=== PATIENT | male | born 1985 | race Hispanic/Latino ===

== ENCOUNTER 2017-11-26 21:46 | Emergency (ER) | payer BC ==
[~2017-11-26] VITALS: Ht 160 cm; Wt 86.6 kg
[~2017-11-26 21:46] MED LIST: DEXILANT30 MG PO; DEXILANT60 MG PO; KEFLEX500 MG PO; MULTIPLE VITAM1 EAC1 PO; TYLENOL WITH C1 EACH PO
[2017-11-26] MEDS ORDERED: PREDNISONE 20 MG TAB PO STA (22:28)
== END 2017-11-26 22:59 | disposition home or self-care (01) ==
LOC: FSED 21:46 → MERGE 21:46 → FSED 22:59
DX: R60.9 Edema, unspecified (principal); K11.21 Acute sialoadenitis; K21.9 Gastro-esophageal reflux disease without esophagitis
CPT/HCPCS: 99284

== ENCOUNTER → 2017-12-04 | Outpatient (CLI) | payer BC ==
[~2017-12-04] MED LIST changes: +IOPAMIDOL 370 MG/ML 200 ML INFUS..BTL INJ ONE; +SODIUM CHLORIDE 0.9% 50ML 50 ML ONE
--- NOTE | 2017-12-04 08:51 | Diagnostic Imaging Report ---
History: Swelling in the neck for 4 days Comparison studies: None Technique: Axial, coronal and sagittal images from the skull base to the thoracic inlet. Coronal and sagittal images reconstructed from the axial data. Intravenous contrast: 100 cc of Omnipaque 300. Findings: Soft tissues: Prominent bilateral palatine tonsils without fluid collection or abnormal enhancement. No other soft tissue abnormality Masses: None. Lymph nodes: No radiographically significant adenopathy. Vessels: Arteries and veins are patent. Glands ( parotid and submandibular): Normal in size and symmetric. No masses. Subcentimeter calcified thyroid nodule on the left inferior pole. Heterogeneous enhancement of the normal sized thyroid gland, nonspecific without discrete lesion. Orbits: No abnormalities. Paranasal sinuses: Clear. Temporal bones: No abnormalities. Skull base and facial bones: Intact. Cervical spine: Patent canal and foramina IMPRESSION: 1. Mildly heterogeneous enhancement of the thyroid gland, recommend correlation with thyroid function tests. 2. Prominent palatine tonsils without inflammatory changes, could related to lymphoid hypertrophy. No other neck abnormality Signed by: DR Jimi Sumner M.D. on 12/04/2017 8:48 AM
== END ==
LOC: CT 07:30
PROVIDERS: ATTEND Otolaryngology
DX: K11.5 Sialolithiasis (principal)
CPT/HCPCS: 70491; Q9967

== ENCOUNTER → 2018-11-20 | Day surgery (SDC) | payer BC ==
[~2018-11-20] MED LIST changes: +FENTANYL CITRATE/PF 100MCG/2 ML INJ ONE; -IOPAMIDOL 370 MG/ML 200 ML INFUS..BTL INJ ONE; +MIDAZOLAM HCL 2 MG/2 ML VIAL ONE; +RANITIDINE HCL300 MG PO; -SODIUM CHLORIDE 0.9% 50ML 50 ML ONE
--- OUTSIDE RECORDS SUMMARY | 2018-11-20 12:16 | XMS REPORT | Encounter Summary ---
Author Organization Unknown Address [address] [place] [address] Phone [phone] Care Team Providers Care Natural Resources Professor Name Role Phone Tomas Oglesby 3 [phone] Reason for Visit Flu Immunization; Medical Complaint; Immunization Instructions 1. Allergic pharyngitis rapid strep group A, throat Lidocaine Viscous 2 % mucosal solution 2. Posterior rhinorrhea fluticasone 50 mcg/actuation nasal spray,suspension 3. Influenza vaccine needed Flulaval Quad [id number] (PF) 60 mcg (15 mcg x 4)/0.5 mL IM syringe 4. Immunization Boostrix Tdap 2.5 Lf unit-8 mcg-5 Lf/0.5 mL intramuscular syringe 5. Tachycardia 6. Elevated blood-pressure reading without diagnosis of hypertension elevated blood pressure: care instructions 7. Body mass index 30+ - obesity body mass index: care instructions 8. Counseling Discussion Note Pt is in NAD; Verbalizes understanding of all instructions with no questions at this time. Plan of Care Patient Instructions Td Booster every 10 years after first Tdap vaccine. Refer to your VIS handout as discussed in clinic today regarding your care after administration. Follow up with your PCP as needed. In case of emergecy call 911 or go to nearest ER. Take fluticasone as needed for congestion. [place] one spray in each nostril twice a day. Take a warm, steamy shower, blow your nose thereafter, and spray in each nostril. Tilt your head up for about 10 seconds and breath through your mouth. Do not sniff or snort the medication in or else the medication will go to your throat and not be absorbed appropriately. Gargle and spit viscous lidocaine as needed for sore throat as directed. Do not share any utensils/cups, no kissing. Frequent handwashing recommended. Recommend monitor BP and HR at home and document, bring BP and HR log to PCP for review. Recommend follow a low sodium/fat/carb diet and exercise 30-45 mins/d 3-4 days a week. In case of an emergency call 911 or go to nearest ER. Reminders Provider Appointments None recorded. Lab Rapid Strep Group a, Throat 01/28/2018 [facility] Referral None recorded. Procedures None recorded. Surgeries None recorded. Imaging None recorded. Medications Name Start Date Dexilant 60 mg capsule, delayed release TAKE ONE (1) CAPSULE(S) BY MOUTH ONCE A DAY. fluticasone 50 mcg/actuation nasal spray,suspension [place] 2 sprays every day by intranasal route at bedtime for 14 days. Lidocaine Viscous 2 % mucosal solution Take 15 mL every 3 hours by oral route as needed. ranitidine 300 mg tablet TAKE ONE (1) TABLET(S) BY MOUTH DAILY. Medications Administered None recorded. Vitals Height Weight BMI Blood Pressure 5 ft 3 in 206 lbs 36.5 kg/m2 (1) 130/80 mm[Hg] (2) 120/90 mm[Hg] Lab Results Date Name Specimen Result Interpretation Description Value Range Status Address Rapid Strep Group a, Throat Result negative [facility]: [address] [place] [address] Swab Location Left and Right tonsillar pillars [facility]: [address] [place] [address] Allergies Code Code System Name Reaction Severity Status Onset NKDA Problems Name Status Onset Date Source Body Mass Index 30+ - Obesity Active 01/28/2018 Allergic Pharyngitis Active 01/28/2018 Posterior Rhinorrhea Active 01/28/2018 Gastroesophageal Reflux Disease Active 01/28/2018 Tachycardia Active 01/28/2018 Elevated Blood-pressure Reading without Diagnosis of Hypertension Active 01/28/2018 Influenza Vaccine Needed Active 01/28/2018 Immunization Active 01/28/2018 Counseling Active 01/28/2018 Procedures Date Name Performed by Appendectomy Information not available Vaccine List Vaccine Type influenza, injectable, quadrivalent, preservative free 01/29/20170.5 mL 01/28/20180.5 mL Tdap 01/28/20180.5 mL Social History Smoking Status Never Smoker Past Encounters 01/28/2018 Allergic Pharyngitis; Posterior Rhinorrhea; Influenza Vaccine Needed; Immunization; Tachycardia; Elevated Blood-pressure Reading without Diagnosis of Hypertension; Body Mass Index 30+ - Obesity; Counseling TARA Lopez-C: [address] [facility], [place] [address], Ph. History of Present Illness Wvbwf-Pfvukuhyaw-Mbnthao Reported By: Patient HPI: Quality: sore throat; post nasal drip. Duration: 2days. Severity: moderate. Onset/Timing: gradual. Context: no sick contacts, no foreign travel, non- smoker, allergies. Modifying factors: OTC medication. Associated Symptoms: no sputum production, no shortness of breath, no wheezing, no change in number of pillows needed to sleep at night, no sweats, no significant weight gain, no significant weight loss, no morning cough, no vomiting, no diarrhea, no rash, no nausea, no fever, no muscle aches, no headache, sore throat; post nasal drip Immunization Reported By: Patient HPI: Immunization Request ; 32 YOM pt with c/o sore throat and post nasal drip x 2 days. Immunization eligibility questions No vaccines in last month, No reaction to previous vaccines:, No Known Allergies Note:
Review of Systems Basic Reported By: Patient Constitutional: Constitutional: no fever Eyes: Eyes: no eye complaints Tzdo-Axal-Vnaop-Throat: Ears: no ear complaints. Nose: nose/sinus problems. Mouth/Throat: no bleeding gums, no mouth complaints, no teeth problems, sore throat Cardiovascular: Cardiovascular: no chest pain, no shortness of breath, no known heart murmur Respiratory: Respiratory: no wheezing, no shortness of breath, cough Gastrointestinal: Gastrointestinal: no abdominal pain, no vomiting / diarrhea Genitourinary: Genitourinary: no urinary complaints, no discharge Musculoskeletal: Musculoskeletal: no muscle aches, no muscle weakness, no arthralgias/joint pain, no back pain Skin: Skin: no abnormal / changing mole, no jaundice, no rashes Neurologic: Neurologic: no loss of consciousness, no weakness, no numbness, no seizures, no dizziness, no headaches Physical Exam Adult Basic, Adult Male Complete, Immunization Reported By: Patient Constitutional: General Appearance: obese. Level of Distress: NAD. Ambulation: ambulating normally Psychiatric: Mental Status: active and alert. Orientation: to time, to place, to person Eyes: Lids and Conjunctivae: non-injected, no discharge, no pallor. Corneas: grossly intact. Lens: clear. Vision: peripheral vision grossly intact Coz-Ymlv-Kemgl-Throat: Ears: no lesions on external ear, no outer ear tenderness, EACs clear, TMs clear. Hearing: no hearing loss. Nose: no lesions on external nose, nares patent, no septal deviation, nasal passages clear, no sinus tenderness, post nasal drip; B/L NTs pale and edematous. Lips, Teeth, and Gums: no mouth or lip ulcers, no bleeding gums, normal dentition. Oropharynx: moist mucous membranes, no erythema, no exudates, tonsils not enlarged Neck: Neck: supple. Lymph Nodes: no cervical LAD Lungs: Respiratory effort: no dyspnea, no tachypnea, no use of accessory muscles, no intercostal retractions. Auscultation: breath sounds normal, good air movement Cardiovascular: Heart Auscultation: no murmurs, tachycardia Neurologic: Gait and Station: normal gait, normal station. Cranial Nerves: grossly intact
--- OUTSIDE RECORDS SUMMARY | 2018-11-20 12:16 | XMS REPORT | Continuity of Care Document ---
Author Author [facility] Organization [facility] Address Unknown Phone Unavailable Care Team Providers Care Dispatcher Service Or Work Name Role Phone [employer] Unavailable Unavailable Problems Problem Status Onset Date Classification Date Reported Comments Source Posterior rhinorrhea 01/28/2018 Diagnosis 01/28/2018 [facility] Allergic pharyngitis 01/28/2018 Diagnosis 01/28/2018 [facility] Body mass index 30+ - obesity 01/28/2018 Diagnosis 01/28/2018 [facility] Elevated blood-pressure reading without diagnosis of hypertension 01/28/2018 Diagnosis 01/28/2018 [facility] Influenza vaccine needed 01/28/2018 Diagnosis 01/28/2018 [facility] Body Mass Index 30+ - Obesity 01/28/2018 Problem 01/28/2018 [facility] Allergic Pharyngitis 01/28/2018 Problem 01/28/2018 [facility] Posterior Rhinorrhea 01/28/2018 Problem 01/28/2018 [facility] Gastroesophageal Reflux Disease 01/28/2018 Problem 01/28/2018 [facility] Tachycardia 01/28/2018 Problem 01/28/2018 [facility] Elevated Blood-pressure Reading without Diagnosis of Hypertension 01/28/2018 Problem 01/28/2018 [facility] Influenza Vaccine Needed 01/28/2018 Problem 01/28/2018 [facility] Immunization 01/28/2018 Problem 01/28/2018 [facility] Counseling 01/28/2018 Problem 01/28/2018 [facility] Acute pharyngitis 05/05/2016 Diagnosis 05/05/2016 [facility] Eustachian tube disorder 05/05/2016 Diagnosis 05/05/2016 [facility] Streptococcal sore throat 10/09/2015 Diagnosis 10/09/2015 [facility] Allergic rhinitis 10/09/2015 Diagnosis 10/09/2015 [facility] Streptococcal Sore Throat Problem 01/29/2017 [facility] Eustachian Tube Disorder Problem 01/29/2017 [facility] Acute Sinusitis Problem 01/29/2017 [facility] Sore Throat Symptom Problem 01/29/2017 [facility] Allergic Rhinitis Problem 01/29/2017 [facility] Acute Pharyngitis Problem 01/29/2017 [facility] Medications Medication Details Route Status Patient Instructions Ordering Provider Order Date Source Amoxicillin 500 MG Oral Tablet amoxicillin 500 mg tablet Take 1 tablet(s) every 8 hours by oral route as directed for 10 days. Active [facility] [place] Amoxil Active [facility] dexlansoprazole 60 MG Delayed Release Oral Capsule [Dexilant] Dexilant 60 mg capsule, delayed release TAKE ONE (1) CAPSULE(S) BY MOUTH ONCE A DAY. Active [facility] Fluarix Quad (PF) 60 mcg (15 mcg x 4)/0.5 mL IM syringe Fluarix Quad (PF) 60 mcg (15 mcg x 4)/0.5 mL IM syringe Active [facility] Ranitidine 300 MG Oral Tablet ranitidine 300 mg tablet TAKE ONE (1) TABLET(S) BY MOUTH DAILY. Active [facility] Fluticasone propionate 0.05 MG/ACTUAT Metered Dose Nasal [place] fluticasone 50 mcg/actuation nasal spray,suspension [place] 2 sprays every day by intranasal route at bedtime for 14 days. Active [facility] Lidocaine Hydrochloride 20 MG/ML Mucous Membrane Topical Solution Lidocaine Viscous 2 % mucosal solution Take 15 mL every 3 hours by oral route as needed. Active [facility] Allergies, Adverse Reactions, Alerts No Known Medication Allergies Immunizations Immunization Date Given Site Status Last Updated Comments Source Tdap 01/28/2018 completed [facility] influenza, injectable, quadrivalent, preservative free 01/28/2018 completed [facility] influenza, injectable, quadrivalent, preservative free 01/29/2017 completed [facility] Results Order Name Results Value Reference Range Date Interpretation Comments Source RESULT negative 01/28/2018 [facility] SWAB LOCATION Left and Right tonsillar pillars 01/28/2018 [facility] RESULT negative 05/05/2016 [facility] SWAB LOCATION Left and Right tonsillar pillars 05/05/2016 [facility] RESULT positive 10/09/2015 [facility] SWAB LOCATION Left and Right tonsillar pillars 10/09/2015 [facility] Pathology Reports No Data Provided for This Section Diagnostic Reports No Data Provided for This Section Consultation Notes No Data Provided for This Section Discharge Summaries No Data Provided for This Section History and Physicals No Data Provided for This Section Vital Signs Vital Sign Value Date Comments Source Diastolic (mm Hg) 90 01/28/2018 [facility] Height 63 01/28/2018 [facility] Systolic (mm Hg) 120 01/28/2018 [facility] Weight 206 01/28/2018 [facility] Height 63 01/29/2017 [facility] Diastolic (mm Hg) 80 05/05/2016 [facility] Height 63 05/05/2016 [facility] Systolic (mm Hg) 120 05/05/2016 [facility] Weight 185 05/05/2016 [facility] Diastolic (mm Hg) 86 10/09/2015 [facility] Height 63 10/09/2015 [facility] Systolic (mm Hg) 110 10/09/2015 [facility] Weight 196 10/09/2015 [facility] Encounters Location Location Details Encounter Type Encounter Number Reason For Visit Attending Provider ADM Date DC Date Status Source [place] - [facility] - [id number] TREY ErazoP: [address] [place] [address], Ph. [id number] Amy Fischer 10/09/2015 [facility] [place] [facility] - [id number] TREY ErazoP: [address] [place] [address], Ph. [id number] Amy Fischer 05/05/2016 [facility] [place] [facility] - [id number] TREY EucedaP-C: [address] [place] [address], Ph. [id number] Cesario Fischer 01/29/2017 [facility] [place] - [facility] - [id number] TARA Lopez-C: [address] [place] [address], Ph. [id number] Kimber Sanchez 01/28/2018 [facility] Procedures Procedure Code Date Perfomer Comments Source Appendectomy [facility] Assessment and Plan No Data Provided for This Section Plan of Care No Data Provided for This Section Social History Social History Date Source Smoking Status Never Smoker 01/20/2015 [facility] Family History No Data Provided for This Section Advance Directives No Data Provided for This Section Functional Status No Data Provided for This Section
--- OUTSIDE RECORDS SUMMARY | 2018-11-20 12:16 | XMS REPORT | Encounter Summary ---
Author Organization Unknown Address [address] [place] [address] Phone [phone] Care Team Providers Care Commercial Real Estate Assistant Name Role Phone Tomas Oglesby 3 [phone] Reason for Visit Flu Immunization Instructions 1. Influenza vaccine needed Fluarix Quad (PF) 60 mcg (15 mcg x 4)/0.5 mL IM syringe Discussion Note: None recorded. Patient educational handouts: No information available. Plan of Care Patient Instructions refer to vis handout with any questions regarding vaccine as discussed. follow up pcp prn Reminders Provider Appointments None recorded. Lab None recorded. Referral None recorded. Procedures None recorded. Surgeries None recorded. Imaging None recorded. Medications Name Start Date Amoxil Dexilant 60 mg capsule, delayed release Fluarix Quad 9400-2838 (PF) 60 mcg (15 mcg x 4)/0.5 mL IM syringe ranitidine 300 mg tablet Medications Administered None recorded. Vitals Height 5 ft 3 in Lab Results None recorded. Allergies Code Code System Name Reaction Severity Status Onset NKDA Problems Name Status Onset Date Source Streptococcal Sore Throat Active Encounter Eustachian Tube Disorder Active Encounter Acute Sinusitis Active Encounter Sore Throat Symptom Active Encounter Acute Pharyngitis Active Encounter Allergic Rhinitis Active Encounter Procedures Date Name Performed by Appendectomy Information not available Vaccine List Vaccine Type influenza, injectable, quadrivalent, preservative free 01/29/20170.5 mL Social History Smoking Status Never Smoker Past Encounters 01/29/2017 Influenza Vaccine Needed TARA Euceda-C: [address] [place] [address], Ph. History of Present Illness Immunization Reported By: Patient HPI: Immunization Request (normal) no symptoms. Immunization eligibility questions No vaccines in last month, No reaction to previous vaccines:, No Known Allergies Review of Systems Basic Reported By: Patient Constitutional: Constitutional: no fever Eyes: Eyes: no eye complaints Physical Exam Immunization Reported By: Patient General Appearance: General: well-developed, well-nourished, no acute distress
--- OUTSIDE RECORDS SUMMARY | 2018-11-20 12:17 | XMS REPORT | Encounter Summary ---
Author Organization Unknown Address [address] [place] [address] Phone [phone] Care Team Providers Care Manager Audio Name Role Phone Tomas Oglesby 3 [phone] Reason for Visit Medical Complaint Instructions 1. Acute pharyngitis rapid strep group A, throat 2. Eustachian tube disorder Discussion Note: None recorded. Patient educational handouts: No information available. Plan of Care Patient Instructions Start on flonase and zyrtec daily x 7days. Robitussin for cough. May take tynenol/motrin for pain. may use cloraseptic throat spray for sore throat. Gargles warm salt water, cepacol.. If no improvement in 3 days, or worsening of symptoms with fever, see primary care physician or call clinic. Reminders Provider Appointments None recorded. Lab Rapid Strep Group a, Throat 05/05/2016 [facility] Referral None recorded. Procedures None recorded. Surgeries None recorded. Imaging None recorded. Medications Name Start Date Amoxil Dexilant 60 mg capsule, delayed release Fluarix Quad 0668-4732 (PF) 60 mcg (15 mcg x 4)/0.5 mL IM syringe ranitidine 300 mg tablet Medications Administered None recorded. Vitals Height Weight BMI Blood Pressure 5 ft 3 in 185 lbs 32.8 120/80 Lab Results Date Name Result Description Value Range Status Rapid Strep Group a, Throat Result negative Swab Location Left and Right tonsillar pillars Allergies Name Reaction Severity Onset NKDA Problems Name Status Onset Date Source Streptococcal Sore Throat Active Encounter Eustachian Tube Disorder Active Encounter Acute Sinusitis Active Encounter Sore Throat Symptom Active Encounter Acute Pharyngitis Active Encounter Allergic Rhinitis Active Encounter Procedures Date Name Performed by Appendectomy Information not available Vaccine List None recorded. Social History Smoking Status Never Smoker Past Encounters 05/05/2016 Acute Pharyngitis; Eustachian Tube Disorder Amy Fischer, [employer]: [address] [place] [address], Ph. History of Present Illness Throat-Oral Complaint Reported By: Patient HPI: Location: throat. Quality: sore throat, dry or hacking cough. Severity: moderate. Duration: 3 days. Onset/Timing: sudden. Context: no sick contacts, no foreign travel, non-smoker. Modifying factors: OTC medication. Associated Symptoms: no sputum production, no shortness of breath, no wheezing, no change in number of pillows needed to sleep at night, no sweats, no significant weight gain, no significant weight loss, no morning cough, no vomiting, no diarrhea, no rash, no nausea, sore throat Review of Systems Basic Reported By: Patient Constitutional: Constitutional: no fever Eyes: Eyes: no eye complaints Opfo-Nmky-Jpaxp-Throat: Ears: no ear complaints. Nose: no nose/sinus problems. Mouth/Throat: no bleeding gums, no [...] headaches Physical Exam Adult Basic, Adult Male Complete Constitutional: General Appearance: healthy-appearing, well-nourished, well-developed. Level of Distress: NAD. Ambulation: ambulating normally Psychiatric: Mental Status: active and alert. Orientation: to time, to place, to person Eyes: Lids and Conjunctivae: non-injected, no discharge, no pallor. Pupils: PERRLA. Corneas: grossly intact. EOM: EOMI. Lens: clear. Sclerae: non-icteric. Vision: acuity grossly intact, peripheral vision grossly intact Eil-Xutr-Netsy-Throat: Ears: no lesions on external ear, no outer ear tenderness, EACs clear, TMs clear, middle ear fluid. Hearing: no hearing loss. Nose: no lesions on external nose, nares patent, no septal deviation, nasal passages clear, no sinus tenderness, no nasal discharge; rhinitis. Lips, Teeth, and Gums: no mouth or lip ulcers, no bleeding gums, normal dentition. Oropharynx: moist mucous membranes, no erythema, no exudates, tonsils not enlarged Neck: Neck: supple, trachea midline, no masses, FROM. Lymph Nodes: no cervical LAD, no supraclavicular LAD. Thyroid: no enlargement, non-tender, no nodules Lungs: Respiratory effort: no dyspnea, no tachypnea, no use of accessory muscles, no intercostal retractions. Auscultation: breath sounds normal, good air movement Cardiovascular: Heart Auscultation: RRR, no murmurs
--- OUTSIDE RECORDS SUMMARY | 2018-11-20 12:17 | XMS REPORT | Encounter Summary ---
Author Organization Unknown Address [address] [place] [address] Phone [phone] Reason for Visit Medical Complaint; congestion, sore throat x 3 days Instructions 1. Streptococcal sore throat rapid strep group A, throat amoxicillin 500 mg tablet 2. Allergic rhinitis Discussion Note: None recorded. Patient educational handouts: No information available. Plan of Care Patient Instructions Take antibiotic as prescribed. Handwashing. Increase fluid intake and plenty of rest. May take tynenol/motrin for pain. may use cloraseptic throat spray for sore throat. Gargles warm salt water, cepacol. Continue Flonase. Throw away old toothbrush after3 days of antibiotic. Avoid sharing drinks/utensils. If no improvement in 3 days, or worsening of symptoms, see primary care physician or call clinic. Reminders Provider Appointments None recorded. Lab Rapid Strep Group a, Throat 10/09/2015 [facility] Referral None recorded. Procedures None recorded. Surgeries None recorded. Imaging None recorded. Medications Name Start Date amoxicillin 500 mg tablet Take 1 tablet(s) every 8 hours by oral route as directed for 10 days. Medications Administered None recorded. Vitals Height Weight BMI Blood Pressure 5 ft 3 in 196 lbs 34.7 110/86 Lab Results Date Name Result Description Value Range Status Rapid Strep Group a, Throat Result positive Swab Location Left and Right tonsillar pillars Allergies Name Reaction Severity Onset NKDA Problems Name Status Onset Date Source Streptococcal Sore Throat Active Encounter Eustachian Tube Disorder Active Encounter Acute Sinusitis Active Encounter Sore Throat Symptom Active Encounter Allergic Rhinitis Active Encounter Procedures Date Name Performed by Appendectomy Information not available Vaccine List None recorded. Social History Smoking Status Never Smoker Past Encounters 10/09/2015 Streptococcal Sore Throat; Allergic Rhinitis Amy Fischer, DIRECTOR OF [employer]ARLY CHILDHOOD: [address] [place] [address], Ph. History of Present Illness Throat-Oral Complaint Reported By: Patient HPI: Location: throat. Quality: sore throat, congested. Duration: 3 days. Onset/Timing: gradual. Context: no sick contacts, no foreign travel, non-smoker. Modifying factors: OTC medication. Associated Symptoms: no sputum production, no shortness of breath, no wheezing, no change in number of pillows needed to sleep at night, no sweats, no significant weight gain, no significant weight loss, no morning co ugh, no vomiting, no diarrhea, no rash, no nausea, sore throat Review of Systems Basic Reported By: Patient Constitutional: Constitutional: no fever Eyes: Eyes: no eye complaints Dwbt-Xcsb-Spbgx-Throat: Ears: no ear complaints. Nose: nose/sinus problems. [...] acuity grossly intact, peripheral vision grossly intact Qgd-Jpzh-Gknlx-Throat: Ears: no lesions on external ear, no outer ear tenderness, EACs clear, TMs clear. Hearing: no hearing loss. Nose: no lesions on external nose, nares patent, no septal deviation, nasal passages clear, no sinus tenderness, no nasal discharge; nasal turbinate hypertrophic. Lips, Teeth, and Gums: no mouth or lip ulcers, no bleeding gums, normal dentition. Oropharynx: moist mucous membranes, erythema, exudates, tonsils enlarged 1+ Neck: Neck: supple, trachea midline, no masses, FROM. Lymph Nodes: no supraclavicular LAD, anterior cervical LAD. Thyroid: no enlargement, non-tender, no nodules Lungs: Respiratory effort: no dyspnea, no tachypnea, no use of accessory muscles, no intercostal retractions. Auscultation: breath sounds normal, good air movement Cardiovascular: Heart Auscultation: RRR, no murmurs
--- OUTSIDE RECORDS SUMMARY | 2018-11-20 12:17 | XMS REPORT ---
Author [facility] Address Unknown Phone Unavailable Care Team Providers Care Leadership Program Associate Name Role Phone SHARIF REID Unavailable Unavailable Problems This patient has no known problems. Allergies, Adverse Reactions, Alerts This patient has no known allergies or adverse reactions. Medications This patient has no known medications. Results Test Description Test Time Test Comments Text Results Atomic Results Result Comments CT SOFT TISSUE NECK W 2017-12-04 08:42:00 [place] [address] Patient Name: KJ JIMENEZ MR #: [id number] : 1985 Age/Sex: 32/M Req #: [id number] [facility] Physician: Ordered by: JEANETTE BONNER, SHARIF BONNER Report #: [id number] Location: CT Room/Bed: Procedure: [id number] CT/CT SOFT TISSUE NECK W Exam Date: 12/04/17 Exam Time: 739 REPORT STATUS: Signed ADDENDUM #1 Dose modulation, iterative reconstruction, and/or weight based adjustment of the mA/kV was utilized to reduce the radiation dose to as low as reasonably achievable. Cyclical Signed by: DR Jimi Sumner M.D. on 01/05/2018 7:52 PM ORIGINAL REPORT History: Swelling in the neck for 4 days Comparison studies: None Technique: Axial, coronal and sagittal images from the skull base to the thoracic inlet. Coronal and sagittal images reconstructed from the axial data. Intravenous contrast: 100 cc of Omnipaque 300. Findings: Soft tissues: Prominent bilateral palatine tonsils without fluid collection or abnormal enhancement. No other soft tissue abnormality Masses: None. Lymph nodes: No radiographically significant adenopathy. Vessels: Arteries and veins are patent. Glands ( parotid and submandibular): Normal in size and symmetric. No masses. Subcentimeter calcified thyroid nodule on the left inferior pole. Heterogeneous enhancement of the normal sized thyroid gland, nonspecific without discrete lesion. Orbits: No abnormalities. Paranasal sinuses: Clear. Temporal bones: No abnormalities. Skull base and facial bones: Intact. Cervical spine: Patent canal and foramina IMPRESSION: 1. Mildly heterogeneous enhancement of the thyroid gland, recommend correlation with thyroid function tests. 2. Prominent palatine tonsils without inflammatory changes, could related to lymphoid hypertrophy. No other neck abnormality Signed by: DR Jimi Sumner M.D. on 12/04/2017 8:48 AM Dictated By: JIMI KANG MD 51 Transcribed By: RADHA on 12/04/17 0872 COPY TO: SHARIF REID
--- NOTE | 2018-11-20 19:25 | Operative Report ---
DATE OF PROCEDURE: 11/20/2018 SURGEON: Sloan Gilbert MD PROCEDURE: Esophagogastroduodenoscopy with biopsies and esophageal dilatation. INDICATIONS FOR PROCEDURE: Acid reflux, dysphagia. MEDICATIONS: The patient was done under MAC, please see anesthesiologist's note. PROCEDURE IN DETAIL: With the patient in the left lateral decubitus position, flexible fiberoptic Olympus gastroscope was introduced into the esophagus under direct visualization without any difficulty. There was some patchy erythema noted in distal esophagus. Minute tongues of Edwards epithelium were noted to extend proximally from the GE junction and biopsies were obtained. Esophagus was then dilated to size 52-Jamaican Campos. The scope was then advanced with ease into the stomach traversing a small sliding hiatal hernia. Mucosa overlying the antrum and the body revealed some patchy erythema and low-grade to moderate edema and biopsies were obtained and sent to stain for H pylori. The pylorus was of normal contour and shape, was intubated with ease and the scope was advanced all the way to the second portion of the duodenum. Biopsies were obtained from the second portion and the duodenal bulb to rule out sprue. The scope was then withdrawn back into the stomach and retroflexed and mucosa overlying the fundus and cardia appeared to be within normal limits. The scope was then straightened out and it was subsequently withdrawn. The patient tolerated procedure well. IMPRESSION: 1. Distal esophagitis, mild. 2. Edwards esophagus, biopsied. 3. Esophageal stricture at GE junction, dilated to size 52-Jamaican Campos. 4. Small sliding hiatal hernia. 5. Gastritis biopsied, biopsies sent to stain for H pylori. 6. Rule out sprue. PLAN: Follow up histology. Continue Dexilant 60 mg one p.o. q.a.m. a.c. and Zantac 300 mg one p.o. at bedtime. Sloan Gilbert MD [facility] [place]/MODL /[id number] cc: Tomas Oglesby MD
== END | disposition home or self-care (01) ==
LOC: OR 11:40
PROVIDERS: ATTEND Internal Medicine Gastroenterology
DX: A04.8 Other specified bacterial intestinal infections (principal); K29.70 Gastritis, unspecified, without bleeding; K22.70 Barrett's esophagus without dysplasia; K22.2 Esophageal obstruction; K20.9 Esophagitis, unspecified; K21.9 Gastro-esophageal reflux disease without esophagitis; K44.9 Diaphragmatic hernia without obstruction or gangrene; K59.09 Other constipation; D72.820 Lymphocytosis (symptomatic); R03.0 Elevated blood-pressure reading, without diagnosis of hypertension; F41.9 Anxiety disorder, unspecified; Z68.36 Body mass index [BMI] 36.0-36.9, adult
CPT/HCPCS: 43239; 43450; J2250; 45380; J3010

== ENCOUNTER → 2020-05-08 | Outpatient (CLI) | payer OTHER ==
[~2020-05-08] MED LIST changes: +COVID-19 VACC, MRNA(MODERNA)/PF 100 MCG/0.5 ML VIAL IM ONE; -FENTANYL CITRATE/PF 100MCG/2 ML INJ ONE; -MIDAZOLAM HCL 2 MG/2 ML VIAL ONE
== END ==
LOC: VACCPMC 17:30
DX: Z23 Encounter for immunization (principal); Z20.828 Contact with and (suspected) exposure to other viral communicable diseases

== ENCOUNTER → 2020-06-11 | Outpatient (CLI) | payer OTHER | LOC: VACCPMC 11:55 | DX: Z23 Encounter for immunization (principal); Z20.822 Contact with and (suspected) exposure to COVID-19 | CPT/HCPCS: 0012A; 91301 ==

== ENCOUNTER → 2020-07-31 | Outpatient (CLI) | payer OTHER ==
[~2020-07-31] MED LIST changes: -COVID-19 VACC, MRNA(MODERNA)/PF 100 MCG/0.5 ML VIAL IM ONE
== END ==
LOC: US 10:59
PROVIDERS: ATTEND Internal Medicine Endocrinology, Diabetes & Metabolism
DX: E04.1 Nontoxic single thyroid nodule (principal)
CPT/HCPCS: 76536